=== PATIENT | female | born 1970 | race Caucasian/White ===

== ENCOUNTER → 2016-09-09 | Outpatient (CLI) | payer OTHER ==
[~2016-09-09] MED LIST: GLYCOLAX17 GM/DOSE PO; HYDROXYZINE HYD25 M1 PO; NITROFURANTOIN100 M6 PO; TOPIRAMATE50 MG PO
--- NOTE | 2016-09-16 11:35 | RADIOLOGY REPORT PS360 ---
DIG MAMM- BIGG ADD VIEWS W/CAD COMPARISON: Digital mammograms 08/26/2016 INDICATION: Evaluation of asymmetric densities in each breast TECHNIQUE: Spot compression exaggerated cc views and spot compression 90 degrees lateral views of each breast FINDINGS: Spot compression views of the right breast show prominent heterogenic fibroglandular densities consistent with fibrocystic change. There are likely small cystic lesions present. Spot compression views of left breast show the dominant asymmetric density which shows well-defined borders and likely is a large cyst. Again there is a background of heterogenic fibroglandular densities consistent with fibrocystic change. Ultrasound performed same date of both breasts showed multiple cystic lesions in each breast. there is no suspicious solid lesion in either breast. There is no definite architectural distortion and there are no suspicious microcalcifications. IMPRESSION: Diffusely and markedly heterogenic parenchymal pattern in each breast with dominant lesion left breast and small likely cystic lesions right breast and these lesions are confirmed to be cystic on ultrasound performed the same date. Recommend the patient return for 6 month follow-up bilateral mammograms and ultrasound to assure interval stability. BI-RADS CATEGORY: 3_Probably Benign-Short Term F/U RECOMMENDED FOLLOWUP: 6M 6MONTH FOLLOW-UP (A letter has been sent to the patient regarding results of the study.)
--- NOTE | 2016-09-16 12:51 | RADIOLOGY REPORT PS360 ---
US BREAST-RT COMPLETE W/AXILLA COMPARISON: Ultrasound left breast same date HISTORY: Evaluate possible new nodular lesions on recent mammogram TECHNIQUE: Targeted ultrasound right breast FINDINGS: There is diffuse heterogenic echogenicity throughout the breast consistent with fibrocystic change. There are several oval hypoechoic cystic-appearing lesions one at the 3:00 position near the nipple measuring 0.8 x 0.5 x 0.5 cm. Another cystic lesion seen at the 6:00 position near the nipple measuring 0.6 x 0.7 x 0.6 cm. A third lesion is seen at the 8:00 position outer breast oval in shape and showing slight acoustic enhancement measuring 0.8 x 0.6 0.6 semiurgent. There is a collection of 3 oval cystic-appearing lesions at the 10:00 position outer breast and a one of which could be the cause of the nodular density on mammogram. There is no suspicious solid lesion. There are least 3 small normal-appearing nodes seen in the axilla. IMPRESSION: Ultrasound findings consistent with diffuse fibrocystic change with multiple benign-appearing cyst as described and recommend patient to have a follow-up ultrasound 6 months along with mammogram to sure stability.
--- NOTE | 2016-09-16 12:53 | RADIOLOGY REPORT PS360 ---
US BREAST-LT COMPLETE W/AXILLA COMPARISON: Ultrasound right breast same date HISTORY: Evaluation of dominant asymmetric density left breast TECHNIQUE: Ultrasound FINDINGS: The dominant hypoechoic cystic-appearing lesion at the 2:00 position outer breast measuring 3.4 x 1.8 x 2.3 cm and this corresponds in size and location to the dominant density on the mammogram. There is a smaller satellite cystic-appearing lesion adjacent to the larger one measuring 1.0 x 0.6 x 0.8 cm. There is diffuse background heterogenic echogenicity consistent with fibrocystic change. There are normal-appearing nodes in the axilla. IMPRESSION: Benign-appearing cystic lesions in a background fibrocystic change and recommend patient have a follow-up ultrasound in 6 months at the time of the follow-up mammogram to sure interval stability
== END ==
LOC: RAD 14:12
DX: R92.8 Other abnormal and inconclusive findings on diagnostic imaging of breast (principal)
CPT/HCPCS: G0204